=== PATIENT | male | born 2005 | race Asian ===

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

== ENCOUNTER 2025-04-21 20:21 | Emergency (ER) | payer BC, SELFPAY ==
[2025-04-21 20:32] VITALS: BP 137/96
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
[2025-04-22 00:58] VITALS: BP 112/68
== END 2025-04-22 00:59 | disposition home or self-care (01) ==
LOC: EMR 20:21
PROVIDERS: EMERGENCY PHYSICIAN Emergency Medicine
DX: F43.20 Adjustment disorder, unspecified (principal); F32.A Depression, unspecified
CPT/HCPCS: 99283